=== PATIENT | male | born 1985 | race American Indian/Alaskan Native ===

== ENCOUNTER 2017-11-21 16:12 | Emergency (ER) | payer SELFPAY ==
[2017-11-21 16:24] VITALS: BP 146/95
[2017-11-21] MEDS ORDERED: NORCO 10/325 PO ONE (19:56)
[2017-11-21] MEDS ORDERED: BOOSTRIX IM ONE (19:56)
[2017-11-21] MEDS ORDERED: XYLOCAINE 1%/ EPI 1:100,000 INFILTRATI NR (20:00)
--- NOTE | 2017-11-21 20:07 | Emergency Department Report ---
Abscess Boil HPI - HPI Chief Complaint: Skin/Abscess/Foreign Body Stated Complaint: PAIN IN REAR END Time Seen by Provider: 11/21/17 18:17 Duration: 1 Week Location: Sacral/Pilonidal Severity: Mild History: Yes Pain, No Fever, No Purulent Drainage, No Numbness, No Foreign Body , No Previous History, No Insect Bite HPI: This is a 32-year-old male nontoxic in appearance with no signs of distress present to the ED with a complaining of a boil to the sacral area times one week. Patient denies any pus or drainage. Patient denies any fever, chills, nausea, vomiting, chest pain, shortness of breath, headache, stiff neck , numbness or tingling. Patient denies any allergies or significant past medical history. Home Medications: Previous Rx's Medication Instructions Recorded Last Taken Type HYDROcodone/APAP 5-325 [Bouton 1 each PO Q6HR PRN #20 tablet 08/14/13 Unknown Rx 5/325 mg] Ibuprofen [Motrin] 600 mg PO Q6H PRN #20 tablet 08/14/13 Unknown Rx Ondansetron [Zofran] 4 mg PO Q6HR PRN #15 tablet 08/14/13 Unknown Rx Sulfamethoxazole/Trimethoprim 1 each PO BID #28 tablet 08/14/13 Unknown Rx [Bactrim Ds] Tamsulosin [Flomax] 0.4 mg PO QDAY #14 cap 08/14/13 Unknown Rx Acetaminophen/Codeine [Tylenol 1 tab PO Q6H PRN #12 tab 11/21/17 Unknown Rx /Codeine # 3 tab] Ibuprofen [Motrin] 600 mg PO Q8H PRN #30 tablet 11/21/17 Unknown Rx Sulfamethoxazole/Trimethoprim 1 each PO BID #14 tablet 11/21/17 Unknown Rx [Bactrim DS TAB] Allergies/Adverse Reactions: Allergies Allergy/AdvReac Type Severity Reaction Status Date / Time No Known Allergies Allergy Verified 08/14/13 05:27 ED Review of Systems ROS: Stated complaint: PAIN IN REAR END Other details as noted in HPI Constitutional: denies: chills, fever Eyes: denies: eye pain, eye discharge, vision change ENT: denies: ear pain, throat pain Respiratory: denies: cough, shortness of breath, wheezing Cardiovascular: denies: chest pain, palpitations Endocrine: no symptoms reported Gastrointestinal: denies: abdominal pain, nausea, diarrhea Genitourinary: denies: urgency, dysuria Musculoskeletal: denies: back pain, joint swelling, arthralgia Skin: denies: rash, lesions Neurological: denies: headache, weakness, paresthesias Psychiatric: denies: anxiety, depression Hematological/Lymphatic: denies: easy bleeding, easy bruising ED Past Medical Hx - Past Medical History Previous Medical History?: No - Surgical History Past Surgical History?: No - Social History Smoking Status: Current Every Day Smoker Substance Use Type: Marijuana - Medications Home Medications: Home Medications Medication Instructions Recorded Confirmed Last Taken Type HYDROcodone/APAP 5-325 [Bouton 1 each PO Q6HR PRN #20 tablet 08/14/13 Unknown Rx 5/325 mg] Ibuprofen [Motrin] 600 mg PO Q6H PRN #20 tablet 08/14/13 Unknown Rx Ondansetron [Zofran] 4 mg PO Q6HR PRN #15 tablet 08/14/13 Unknown Rx Sulfamethoxazole/Trimethoprim 1 each PO BID #28 tablet 08/14/13 Unknown Rx [Bactrim Ds] Tamsulosin [Flomax] 0.4 mg PO QDAY #14 cap 08/14/13 Unknown Rx Acetaminophen/Codeine [Tylenol 1 tab PO Q6H PRN #12 tab 11/21/17 Unknown Rx /Codeine # 3 tab] Ibuprofen [Motrin] 600 mg PO Q8H PRN #30 tablet 11/21/17 Unknown Rx Sulfamethoxazole/Trimethoprim 1 each PO BID #14 tablet 11/21/17 Unknown Rx [Bactrim DS TAB] ED Abscess Boil Physical Exam - Exam General: Vital signs noted. No distress. Alert and acting appropriately. GENERAL: The patient is a well-developed, well-nourished in no apparent distress. Patient is alert and acting appropriately for age. Alert and oriented 3, no apparent distress, normal gait, atraumatic. HEENT: Head is normocephalic and atraumatic. PERRL, Extraocular muscles are intact. Pupils are equal, round, and reactive to light and accommodation. Nares appeared normal. Mouth is well hydrated and without lesions. Mucous membranes are moist. Posterior pharynx clear of any exudate or lesions. Mouth is well hydrated and without lesions. Tonsils not erythematous or swollen. Uvula midline. Tongue elevated. Mucous members are moist. Posterior pharynx clear, no exudate or lesions. Patent airways. NECK: Supple. No carotid bruits. No lymphadenopathy or thyromegaly.nontender. No meningitic signs are noted. LUNGS: Clear to auscultation. Non labor breathing. No intercostal retractions. Symmetrical with respiration, no wheezing, no rales, or crackles. HEART: Regular rate and rhythm without murmur, rubs or gallops. No reproducible. S1, S2 present, regular rate and rhythm without murmur, no rubs, no gallops. ABDOMEN: Soft, nontender, and nondistended. Positive bowel sounds. No hepatosplenomegaly was noted. No guarding or rebound tenderness, negative epigastric bruit. Negative psoas sign, negative plata sign, negative McBurneys sign EXTREMITIES: Without any cyanosis, clubbing, rash, lesions or edema. Peripheral pulses intact. Capillary refill less than 2 seconds. Full range of motion bilaterally. NEUROLOGIC: Cranial nerves II through XII are grossly intact. Alert and oriented x 3. Normal gait. Symmetrical strength and sensation. Reflexes 2+ throughout. Cerebellar testing normal. GCS score of 15. PSYCHIATRIC: Normal affect with no suicidal or homicidal ideations. Front/Back of Body, Lg (Color): 1 - 4 cm abscess Size: 4 cm Exam: Yes Tenderness, Yes Fluctuance, Yes Normal Neurologic Exam, Yes Normal Circulation, No Surrounding Cellulites/Erythema, No Lymphangitis, No Crepitation , No Heart Murmur I & D Note - I & D Note I & D Note: Under sterile field, I used Betadine to cleanse the area. I then used 1% lidocaine with epi 1-200,000 with 25-gauge 5/8 needle to inject area for anesthetic purposes. Total volume injected 3 mL. I then used an 11 blade to make a 1 cm incision. About 5 mL's of purulent drainage has been noted. I then used a hemostat to break the abscess formation. I then used sterile 0.9% normal saline flush to flush the wound with total volume of 40 mL used. I then put a 1/2 iodoform packing to the incision. A sterile 4 x 4 with tape has been applied as dressing. Bleeding is under control. Patient tolerated the procedure well with no signs of distress noted. ED Course Vital Signs 11/21/17 16:18 Temperature 97.9 F Pulse Rate 103 H Respiratory 18 Rate Blood Pressure 146/95 O2 Sat by Pulse 98 Oximetry - Reevaluation(s) Reevaluation #1: 11/21/17 19:59 Patient is speaking in full sentences with no signs of distress noted. Critical care attestation.: If time is entered above; I have spent that time in minutes in the direct care of this critically ill patient, excluding procedure time. ED Medical Decision Making - Medical Decision Making This is a 32-year-old male that presents with sacral abscess. Patient is stable and was examined by me. This is incision and drainage and has been performed and patient tolerated well. A sterile dressing has been applied. Patient was educated on proper wound care. Patient is discharged with Bactrim and Tylenol and codeine and was instructed not to operate any machinery while taking Tylenol and codeine due to drowsiness. Patient was instructed to return in 2 days for packing removal. Patient was instructed to refer to Follow-up with a primary care doctor in 3-5 days or if symptoms worsen and continue return to emergency room as soon as possible. At time of discharge, the patient does not seem toxic or ill in appearance. No acute signs of distress noted. Patient agrees to discharge treatment plan of care. No further questions noted by the patient. Patient received clindamycin 600 mg IM in the ED. ED Disposition Clinical Impression: Abscess, Encounter for incision and drainage procedure Disposition: DC-01 TO HOME OR SELFCARE Is pt being admited?: No Does the pt Need Aspirin: No Condition: Stable Instructions: Sulfamethoxazole/Trimethoprim (By mouth), Acetaminophen/Codeine ( By mouth), Abscess (ED) Additional Instructions: Follow-up with a primary care doctor in 3-5 days or if symptoms worsen and continue return to emergency room as soon as possible. Do not operate any machinery while taking Tylenol with codeine as this may cause drowsiness. Return in 2 days for packing removal Prescriptions: Acetaminophen/Codeine [Tylenol /Codeine # 3 tab] 1 tab PO Q6H PRN #12 tab PRN Reason: Pain , Severe (7-10) Ibuprofen [Motrin] 600 mg PO Q8H PRN #30 tablet PRN Reason: Pain Sulfamethoxazole/Trimethoprim [Bactrim DS TAB] 1 each PO BID #14 tablet Referrals: PRIMARY CAREMD [Primary Care Provider] - 3-5 Days THAIS KEITH MD [Staff Physician] - 3-5 Days [facility] [Outside] - 3-5 Days [facility] [Outside] - 3-5 Days Forms: Work/School Release Form(ED)
[2017-11-21] MEDS ORDERED: CLEOCIN IM ONE (20:40)
== END 2017-11-21 20:54 | disposition home or self-care (01) ==
LOC: ED 16:12
DX: L02.212 Cutaneous abscess of back [any part, except buttock and flank] (principal); F17.200 Nicotine dependence, unspecified, uncomplicated; F12.10 Cannabis abuse, uncomplicated; Z79.899 Other long term (current) drug therapy
CPT/HCPCS: 90471; 90715; 96372; 99282

== ENCOUNTER 2017-11-23 09:16 | Emergency (ER) | payer SELFPAY ==
[2017-11-23 09:24] VITALS: BP 131/77
--- NOTE | 2017-11-23 10:51 | Emergency Department Report ---
ED Recheck HPI - General Chief Complaint: Medical Clearance Stated Complaint: follow up Time Seen by Provider: 11/23/17 10:28 Source: patient Mode of arrival: Ambulatory Limitations: No Limitations - History of Present Illness Initial Comments: This is a 32-year-old -[place] male who presents for packing removal. Patient states he had an incision and drain of abscess of right buttock done in this ER 2 days ago. Patient states he was able to keep packing in place while changing dressing 2 times a day. He is taking antibiotics as prescribed. Patient states pain has decreased. Denies fever, numbness or tingling, warmth, believed into area. MD Complaint: wound re-check Onset/Timin -: days(s) Initial Visit For: abscess Returns Today for: wound recheck Symptoms Since Prior Visit: no new symptoms Context: planned re-check Associated Symptoms: none Treatments Prior to Arrival: dressings, Given Antibiotics on, Given Pain Meds on - Related Data Previous Rx's Medication Instructions Recorded Last Taken Type HYDROcodone/APAP 5-325 [Lynn 1 each PO Q6HR PRN #20 tablet 08/14/13 Unknown Rx 5/325 mg] Ibuprofen [Motrin] 600 mg PO Q6H PRN #20 tablet 08/14/13 Unknown Rx Ondansetron [Zofran] 4 mg PO Q6HR PRN #15 tablet 08/14/13 Unknown Rx Sulfamethoxazole/Trimethoprim 1 each PO BID #28 tablet 08/14/13 Unknown Rx [Bactrim Ds] Tamsulosin [Flomax] 0.4 mg PO QDAY #14 cap 08/14/13 Unknown Rx Acetaminophen/Codeine [Tylenol 1 tab PO Q6H PRN #12 tab 11/21/17 Unknown Rx /Codeine # 3 tab] Ibuprofen [Motrin] 600 mg PO Q8H PRN #30 tablet 11/21/17 Unknown Rx Sulfamethoxazole/Trimethoprim 1 each PO BID #14 tablet 11/21/17 Unknown Rx [Bactrim DS TAB] Allergies Allergy/AdvReac Type Severity Reaction Status Date / Time No Known Allergies Allergy Verified 08/14/13 05:27 ED Review of Systems ROS: Stated complaint: follow up Other details as noted in HPI Constitutional: denies: chills, fever Respiratory: denies: cough, shortness of breath, wheezing Cardiovascular: denies: chest pain, palpitations Gastrointestinal: denies: abdominal pain, nausea, diarrhea Skin: lesions (wound of right buttock with packing ). denies: rash Neurological: denies: headache, weakness, numbness, paresthesias Psychiatric: denies: anxiety, depression ED Past Medical Hx - Past Medical History Previous Medical History?: No - Surgical History Past Surgical History?: No - Social History Smoking Status: Never Smoker Substance Use Type: None - Medications Home Medications: Home Medications Medication Instructions Recorded Confirmed Last Taken Type HYDROcodone/APAP 5-325 [Lynn 1 each PO Q6HR PRN #20 tablet 08/14/13 Unknown Rx 5/325 mg] Ibuprofen [Motrin] 600 mg PO Q6H PRN #20 tablet 08/14/13 Unknown Rx Ondansetron [Zofran] 4 mg PO Q6HR PRN #15 tablet 08/14/13 Unknown Rx Sulfamethoxazole/Trimethoprim 1 each PO BID #28 tablet 08/14/13 Unknown Rx [Bactrim Ds] Tamsulosin [Flomax] 0.4 mg PO QDAY #14 cap 08/14/13 Unknown Rx Acetaminophen/Codeine [Tylenol 1 tab PO Q6H PRN #12 tab 11/21/17 Unknown Rx /Codeine # 3 tab] Ibuprofen [Motrin] 600 mg PO Q8H PRN #30 tablet 11/21/17 Unknown Rx Sulfamethoxazole/Trimethoprim 1 each PO BID #14 tablet 11/21/17 Unknown Rx [Bactrim DS TAB] ED Physical Exam - General Limitations: No Limitations General appearance: alert, in no apparent distress, obese - Respiratory Respiratory exam: Present: normal lung sounds bilaterally. Absent: respiratory distress - Cardiovascular Cardiovascular Exam: Present: regular rate, normal rhythm. Absent: systolic murmur, diastolic murmur, rubs, gallop - GI/Abdominal GI/Abdominal exam: Present: soft, normal bowel sounds. Absent: organomegaly, mass - Neurological Exam Neurological exam: Present: alert, oriented X3 - Psychiatric Psychiatric exam: Present: normal affect, normal mood - Skin Skin exam: Present: warm, dry, normal color. Absent: intact (wall into the right medial foot with packing in place), rash ED Course Vital Signs 11/23/17 09:21 Temperature 98 F Pulse Rate 84 Respiratory 16 Rate Blood Pressure 131/77 O2 Sat by Pulse 100 Oximetry - Procedure Description Procedures done: Packing removal: Iodoform packing Removed with forceps. Cleaned with normal saline. 4 x 4 gauze dressing applied with surgical tape. ED Recheck MDM - Differential Diagnosis Wound Recheck - Medical Decision Making This is a 32 y.o. male that presents for packing removal from 2 days ago. Patient is stable and examined by me. No acute signs of distress noted. Iodoform packing Removed with forceps, cleaned with normal saline, and 4 x 4 gauze dressing applied with surgical tape. Continue antibiotics as prescribed from previous visit. Follow-up with primary care provider in 2-3 days. Patient discharged home stable. Critical care attestation.: If time is entered above; I have spent that time in minutes in the direct care of this critically ill patient, excluding procedure time. ED Disposition Clinical Impression: Encounter for abscess packing removal, Abscess Disposition: TO HOME OR SELFCARE Is pt being admited?: No Does the pt Need Aspirin: No Condition: Stable Instructions: Acute Wound Care (ED), Abscess (ED) Additional Instructions: Complete full round of antibiotic as prescribed. Follow up with PCP in 2-3 days. Return to ER if foul smelling discharge, swelling, or severe pain to wound. Referrals: [facility] [Outside] - 3-5 Days [facility] [Outside] - 3-5 Days [facility] [Outside] - 3-5 Days Forms: Work/School Release Form(ED) Time of Disposition: 10:55 Print Language: [email or web address]
== END 2017-11-23 12:38 | disposition home or self-care (01) ==
LOC: ED 09:16
DX: Z48.00 Encounter for change or removal of nonsurgical wound dressing (principal); Z79.899 Other long term (current) drug therapy